=== PATIENT | female | born 1990 | race Caucasian/White ===

== ENCOUNTER 2016-04-20 07:17 | Emergency (ER) | payer MEDICAID ==
[~2016-04-20] VITALS: Ht 165.1 cm; Wt 104.3 kg
[~2016-04-20 07:17] MED LIST: ANTIBIOTICS PO; NORCO 5/325 MG1 TAB PO
[2016-04-20 07:25] VITALS: BP 127/84
--- NOTE | 2016-04-20 07:30 | NUR ---
PATIENT PRESENTS TO ED WITH C/O COUGH AND SORE THROAT X 1 WEEK; DENIES N/V/D; SKIN IS PINK/WARM/DRY; AAOX4 WITH EVEN AND STEADY GAIT; LUNGS CLEAR BL; HR EVEN AND REGULAR; PT DENIES ANY FEVER, CP, OR SOB AT THIS TIME; PATIENT STATES PAIN SORE THROAT OF 8/10 AT THIS TIME; VSS; PATIENT POSITIONED FOR COMFORT; HOB ELEVATED; BEDRAILS UP X2; BED DOWN. ER MD MADE AWARE OF PT STATUS.
[2016-04-20 08:07] VITALS: BP 122/76
--- NOTE | 2016-04-20 08:07 | NUR ---
Patient discharged with v/s stable. Written and verbal after care instructions given and explained. Patient alert, oriented and verbalized understanding of instructions. Ambulatory with steady gait. All questions addressed prior to discharge. ID band removed. Patient advised to follow up with PMD. Rx of ARITHROMYCIN, DEXTROMETHORPHAN given. Patient educated on indication of medication including possible reaction and side effects. Opportunity to ask questions provided and answered.
== END 2016-04-20 08:07 | disposition home or self-care (01) ==
LOC: MED 07:38
DX: J02.8 Acute pharyngitis due to other specified organisms (principal); B96.89 Other specified bacterial agents as the cause of diseases classified elsewhere; R03.0 Elevated blood-pressure reading, without diagnosis of hypertension

== ENCOUNTER 2019-08-13 15:58 | Emergency (ER) | payer SELFPAY ==
[~2019-08-13] VITALS: Ht 162.6 cm; Wt 106.6 kg
[2019-08-13 16:26] VITALS: BP 129/96
--- NOTE | 2019-08-13 16:38 | NUR ---
TO XRAY VIA W/C
--- NOTE | 2019-08-13 16:50 | NUR ---
PT BACK VIA W/C
--- NOTE | 2019-08-13 17:09 | NUR ---
DIONISIO ANDRADE AT BEDSIDE
[2019-08-13 17:26] VITALS: BP 129/96
--- NOTE | 2019-08-13 17:26 | NUR ---
PT SEEN AND D/C BY DIONISIO ANDRADE. NO NURSING CARE/SERVICES RENDERED.
== END 2019-08-13 17:26 | disposition home or self-care (01) ==
LOC: MED 15:58
DX: S80.02XA Contusion of left knee, initial encounter (principal); S80.01XA Contusion of right knee, initial encounter; W19.XXXA Unspecified fall, initial encounter; Y93.55 Activity, bike riding; Y92.89 Other specified places as the place of occurrence of the external cause; Y99.8 Other external cause status
CPT/HCPCS: 73560; 99283

== ENCOUNTER 2020-01-28 10:07 | Emergency (ER) | payer SELFPAY ==
[~2020-01-28] VITALS: Ht 162.6 cm; Wt 104.3 kg
[2020-01-28 10:15] VITALS: BP 140/90
[2020-01-28 11:02] VITALS: BP 140/90
== END 2020-01-28 11:02 | disposition home or self-care (01) ==
LOC: MED 10:07
DX: J03.90 Acute tonsillitis, unspecified (principal)
CPT/HCPCS: 87081; 99283

== ENCOUNTER 2020-02-13 12:31 | Emergency (ER) | payer MEDICAID, SELFPAY ==
[~2020-02-13] VITALS: Ht 165.1 cm; Wt 104.3 kg
[2020-02-13 12:50] VITALS: BP 165/101
[2020-02-13] MEDS ORDERED: ALBUTEROL HFA MDI 90 MCG/ACTUATION 8 GM INH ONE (13:00)
--- NOTE | 2020-02-13 14:30 | NUR ---
Patient discharged with v/s stable. Written and verbal after care instructions given and explained. Patient alert, oriented and verbalized understanding of instructions. Ambulatory with steady gait. All questions addressed prior to discharge. ID band removed. Patient advised to follow up with PMD. Rx of Tylenol, Albuterol, Naprosyn, and Guaiatussin given. Patient educated on indication of medication including possible reaction and side effects. Opportunity to ask questions provided and answered. Addendum: 02/13/20 at 1456 by [facility] Covid swab collected and sent to the lab. No nursing care provided in our ER.
--- NOTE | 2020-02-18 00:57 | NUR ---
POSITIVE COVID + RESULTS RECEIVED FROM LAB. A COPY OF TEST RESULTS GIVEN TO INFECTION CONTROL.
== END 2020-02-13 14:30 | disposition home or self-care (01) ==
LOC: MED 12:31
DX: J18.9 Pneumonia, unspecified organism (principal); Z20.828 Contact with and (suspected) exposure to other viral communicable diseases
CPT/HCPCS: 71045; 94664; 99284; U0003

== ENCOUNTER 2020-03-29 11:30 | Emergency (ER) | payer MEDICAID, SELFPAY ==
[~2020-03-29] VITALS: Ht 162.6 cm; Wt 105.2 kg
[2020-03-29 11:32] VITALS: BP 142/92
--- NOTE | 2020-03-29 11:37 | NUR ---
Patient ambulated to bed 04
--- NOTE | 2020-03-29 12:12 | NUR ---
29 Y/O F COMING IN FROM HOME WITH TONSIL PAIN. PT STATES A MONTH AGO, SHE WAS SEEN FOR TONSILLITIS, COMPLETED HER ABX TREATMENT AND FELT BETTER. PT STATES TWO DAYS AGO, THE PAIN BEGAN AGAIN. PT DESCRIBES PAIN 9/10, SHARP, CONSTANT PAIN TO THE LEFT SIDE OF HER THROAT. PT STATES SHE WENT TO A STORE FOR "ANTIBIOTICS MEDICATION" OF UNKNOWN SOURCE, TOOK THE MEDICATION WITH NO RELIEF. PT PLACED ONTO SCALLOP CUTTER, BED LOCKED IN LOWEST POSITION, SIDE RAILS X 1. PMH/MEDS: YVONNE AGUERO
--- NOTE | 2020-03-29 12:12 | NUR ---
SAID EVALUATING PATIENT AT BEDSIDE.
[2020-03-29] MEDS: IBUPROFEN 600 MG TAB PO ONE (13:00)
[2020-03-29] MEDS: predniSONE 20 MG TAB PO ONE (13:00)
[2020-03-29 13:08] VITALS: BP 117/79
--- NOTE | 2020-03-29 13:08 | NUR ---
Patient discharged with v/s stable. Written and verbal after care instructions given and explained. Patient alert, oriented and verbalized understanding of instructions. Ambulatory with steady gait. All questions addressed prior to discharge. ID band removed. Patient advised to follow up with PMD. Rx of IBUPROFEN, AUGMENTIN, PREDNISONE, CHLORASEPTIC THROAT SPRAY given. Patient educated on indication of medication including possible reaction and side effects. Opportunity to ask questions provided and answered.
== END 2020-03-29 13:08 | disposition home or self-care (01) ==
LOC: MED 11:30
DX: J03.90 Acute tonsillitis, unspecified (principal)
CPT/HCPCS: 99283; J7512

== ENCOUNTER 2020-11-02 15:57 | Emergency (ER) | payer MEDICAID ==
[~2020-11-02] VITALS: Ht 162.6 cm; Wt 104.3 kg
[2020-11-02 16:47] VITALS: BP 133/75
[2020-11-02] MEDS ORDERED: NAPR-54 PO (17:08)
[2020-11-02] MEDS ORDERED: PROM118S5 PO (17:08)
[2020-11-02] MEDS ORDERED: PENI500T20 PO (17:08)
--- NOTE | 2020-11-02 17:20 | NUR ---
NOVEL SWAB DONE. WALKED TO LAB.
[2020-11-02 17:50] VITALS: BP 133/75
--- NOTE | 2020-11-02 18:14 | NUR ---
Patient discharged with v/s stable. Written and verbal after care instructions given and explained. Patient alert, oriented and verbalized understanding of instructions. Ambulatory with steady gait. All questions addressed prior to discharge. ID band removed. Patient advised to follow up with PMD. Rx of NAPROXEN, PENICILLIN V, PROMETHAZINE given. Patient educated on indication of medication including possible reaction and side effects. Opportunity to ask questions provided and answered.
== END 2020-11-02 18:14 | disposition home or self-care (01) ==
LOC: MED 15:57
DX: U07.1 COVID-19 (principal)
CPT/HCPCS: 99283; U0003

== ENCOUNTER 2021-09-28 14:47 | Emergency (ER) | payer MEDICAID ==
[~2021-09-28] VITALS: Ht 162.6 cm; Wt 108.9 kg
[~2021-09-28 14:47] MED LIST changes: -ANTIBIOTICS PO; +NAPR-54 PO; -NORCO 5/325 MG1 TAB PO; +PENI500T20 PO; +PROM118S5 PO
[2021-09-28 16:24] VITALS: BP 151/77
--- NOTE | 2021-09-28 16:29 | NUR ---
JAYSON. HANDED ON URINE CUP.
--- NOTE | 2021-09-28 16:48 | NUR ---
DIONISIO BUCK EVALUATING PT AT TRIAGE ROOM.
[2021-09-28] MEDS ORDERED: CYCL-711 PO (16:52)
[2021-09-28] MEDS ORDERED: IBUP-2213 PO (16:52)
[2021-09-28] MEDS ORDERED: CEPH-588 PO (16:52)
--- NOTE | 2021-09-28 17:06 | NUR ---
31 Y.O. F C/O 9/10 MID BACK PAIN X LAST NIGHT. DENIES TRAUMA. DENIES DYSURIA. 7/10 PAIN. A&OX4, SKIN INTACT, VITALS WNL AND STEADY GAIT. NKA PMH: DENIES
[2021-09-28 17:10] VITALS: BP 151/77
--- NOTE | 2021-09-28 17:10 | NUR ---
Patient discharged with v/s stable. Written and verbal after care instructions given and explained. Patient alert, oriented and verbalized understanding of instructions. Ambulatory with steady gait. All questions addressed prior to discharge. ID band removed. Patient advised to follow up with PMD. Rx of KEFELEX, FLEXERIL, AND IBUPROFEN given. Patient educated on indication of medication including possible reaction and side effects. Opportunity to ask questions provided and answered.
== END 2021-09-28 17:10 | disposition home or self-care (01) ==
LOC: MED 14:47
DX: M54.2 Cervicalgia (principal); M54.6 Pain in thoracic spine; R03.0 Elevated blood-pressure reading, without diagnosis of hypertension; N39.0 Urinary tract infection, site not specified; Z79.899 Other long term (current) drug therapy
CPT/HCPCS: 81002; 81025; 99283

== ENCOUNTER 2022-02-27 08:04 | Emergency (ER) | payer MEDICAID ==
[~2022-02-27] VITALS: Ht 167.6 cm; Wt 110.2 kg
[~2022-02-27 08:04] MED LIST changes: +CEPH-588 PO; +CYCL-711 PO; +IBUP-2213 PO
[2022-02-27 08:17] VITALS: BP 118/71
--- NOTE | 2022-02-27 08:25 | NUR ---
covid and flu swabbed at this time
--- NOTE | 2022-02-27 08:25 | NUR ---
31 y/o female, a&ox4, ambulates with steady gait. c/o body aches 10/10, sore throat, cough, lorenzo, diarrhea, subjective fever since last night. states boyfriend has same s/s. pmh: denies nka med: denies
--- NOTE | 2022-02-27 09:38 | NUR ---
pt ambulated to [facility] at this time
--- NOTE | 2022-02-27 09:39 | NUR ---
DR CROSS AT PT SIDE
[2022-02-27] MEDS ORDERED: KETOROLAC 30 MG/ML VIAL IM ONE (09:45)
--- NOTE | 2022-02-27 09:56 | NUR ---
Patient discharged with v/s stable. Written and verbal after care instructions given and explained. Patient verbalized understanding. Ambulatory with steady gait. All questions addressed prior to discharge. Advised to follow up with PMD.
== END 2022-02-27 09:56 | disposition home or self-care (01) ==
LOC: MED 08:04
DX: U07.1 COVID-19 (principal)
CPT/HCPCS: 87426; 87804; 96372; 99283; J1885

== ENCOUNTER 2023-09-11 08:58 | Emergency (ER) | payer SELFPAY ==
[~2023-09-11] VITALS: Ht 167.6 cm; Wt 122.5 kg
[~2023-09-11 08:58] MED LIST changes: +NAPR-337 PO; -NAPR-54 PO
[2023-09-11 09:08] VITALS: BP 134/88; PULSE 92; RESP 16; TEMP 97.6; O2SAT 99
[2023-09-11] MEDS ORDERED: KETOROLAC 60 MG/2 ML VIAL IM ONE (09:50)
[2023-09-11] MEDS: KETOROLAC 30 MG/ML VIAL IVP ONE (10:10)
[2023-09-11] MEDS: NACL 0.9% 1,000 ML IV ONE (10:10)
[2023-09-11 10:56] LABS: FLU A ANTIGEN negative (NEGATIVE); FLU B ANTIGEN negative (NEGATIVE)
[2023-09-11 10:59] VITALS: BP 136/79; PULSE 82; RESP 18; TEMP 99; O2SAT 98
[2023-09-11] MEDS ORDERED: NIRM1TAB9 PO (11:03)
[2023-09-11] MEDS ORDERED: IBUP-2213 PO (11:03)
== END 2023-09-11 11:17 | disposition home or self-care (01) ==
LOC: MED 08:58
DX: U07.1 COVID-19 (principal); F17.200 Nicotine dependence, unspecified, uncomplicated; Z79.1 Long term (current) use of non-steroidal anti-inflammatories (NSAID); Z79.2 Long term (current) use of antibiotics; Z79.899 Other long term (current) drug therapy
CPT/HCPCS: 81002; 81025; 87426; 87804; 96361; 96374; 99283; J1885; J7030